=== PATIENT | male | born 1975 ===

== ENCOUNTER 2018-06-03 17:27 | Emergency (ER) | payer OTHER ==
--- OUTSIDE RECORDS SUMMARY | 2018-06-03 17:35 | XMS REPORT ---
:1975 External Reference #:[id number] Author Organization [facility] Address [address] [place] [address] Phone [phone] Care Team Providers Name Role Phone Morgan Swanson MD Care Team Information Cartoon Animator Unavailable Morgan Swanson MD Primary Care Physician Unavailable Payers Type Date Identification Numbers Payment Provider Subscriber Health Maintenance Policy Number: [id number] [place] [employer] Gisel Barbosa Organization (HMO) Group Number: [id number] [id number] PayID: [id number] [place] [address] Problems Description No Information Family History Date Family Member(s) Problem(s) Comments Father Hypertension Mother Kidney Stones First Son Crohn's Disease Second Son No Current Problems Grandfather due to () Hypertension : Grandfather due to SD () Grandfather due to () Alcoholism Paternal Grandmother due to SD () Maternal Grandfather due to Unknown () - in 90s Causes Maternal Grandmother due to Unknown () - in her Causes 90s Social History Type Date Description Comments Marital Status . Lives With Son Lives With Spouse Sleep Typically sleeps 8 hours a night Occupation biomedical sciences mostly research Work Status Full-Time Employment Cigarette Use Never Smoked Cigarettes ETOH Use Rare only a few times per year Recreational Drug Use Never Used Drugs Smoking Patient has never smoked Exercise Type/Frequency Exercises regularly walks regularly Currently Active Patient is currently sexually active STD's No STD History Dom Violence Screen screening has been done Allergies, Adverse Reactions, Alerts Date Description Reaction Status Severity Comments 05/29/2018 NKDA active Medications Medication Date Status Form Strength Qnty SIG Indications Ordering Provider Lisinopril Active Tablets 5mg 1 by Unknown 00 mouth every day Levothyroxine Active Tablets 50mcg 1 by Unknown Sodium 00 mouth every day Atorvastatin Active Tablets 40mg 1 by Unknown Calcium 00 mouth every day Vital Signs Date Vital Result Comment 05/29/2018 BP Systolic 102 mmHg BP Diastolic 70 mmHg Heart Rate 72 /min Body Temperature 98.1 F Respiratory Rate 16 /min Height 67 inches 5'7" Weight 163.00 lb BMI (Body Mass Index) 25.5 kg/m2 Results Description No Information Procedures Description No Information Plan of Care 05/29/2018 - Melissa Pham, NPI10 Essential (primary) hypertensionComments: Call or return to the office if:* you get more than one blood pressure reading above 160/100 (even if only one of the numbers is high)* you feel close to passing out or actually pass out* you have new or worsening swelling in the ankles, legs, hands, or face* you develop palpiatations or funny heartbeats I would make no medication changes at this time.E78.2 Mixed hyperlipidemiaComments :I would make no medication changes at this time.E03.9 Hypothyroidism, unspecifiedNew Labs:TSH ([facility])Comments:will recheck TSH vcpduG38.01 Impaired fasting glucoseNew Labs:Comp Metabolic-ALL Lab CompaniHemoglobin A1c ( a)Comments:Will suoigmjG67.61 Achilles tendinitis, right legComments:I recommend stretching exercises twice daily, naproxen as needed, and gel heel cups.If symptoms persist or worsen, please let me know and we can try physical therapy and a referral to a school librarian.M76.62 Achilles tendinitis, left legR53.83 Other flihhayZ73.8 Other vitamin B12 deficiency anemiasNew Labs: Vitamin B12 Ser Mass/VolComments:Will recheck today.Z23 Encounter for immunizationAllComments:As always, we strongly encourage a healthy diet and making physical activity a part of your every day life. If you have questions about how or where to start, please contact the office.
[2018-06-03 18:07] VITALS: BP 144/73
--- NOTE | 2018-06-03 18:36 | UC ---
Headache HPI - HPI Summary HPI Summary: just got his lab report back that had a blood glucose of 443. he has been c/o headache in the afternoons ---he experience polydipsia, and polyuria id not otherwise ill - History Of Current Complaint Chief Complaint: UCGeneralIllness Stated Complaint: HEADACHE Time Seen by Provider: 06/03/18 18:23 Hx Obtained From: Patient Onset/Duration: Sudden Onset Pain Intensity: 0 Timing: Intermittent, Lasting:, Hours Character: Typical Headache Location of Headache: Diffuse Aggravating Factor(s): Nothing Allevating Factor(s): Rest Associated Signs And Symptoms: Positive: Negative - Allergies/Home Medications Allergies/Adverse Reactions: Allergies Allergy/AdvReac Type Severity Reaction Status Date / Time No Known Allergies Allergy Verified 06/03/18 20:48 Home Medications: Home Medications Atorvastatin* [Lipitor*] 5 mg PO DAILY 06/03/18 [History Confirmed 06/03/18] Levothyroxine TAB* [Synthroid TAB*] 50 mcg PO DAILY 06/03/18 [History Confirmed 06/03/18] Lisinopril TAB* [Prinivil TAB*] 5 mg PO DAILY 06/03/18 [History Confirmed ] PMH/Surg Hx/FS Hx/Imm Hx Previously Healthy: No Endocrine History: Hypothyroidism, Dyslipidemia Cardiovascular History: Hypertension - Surgical History Surgical History: None - Family History Known Family History: Positive: None - Social History Occupation: Employed Full-time Lives: With Family Alcohol Use: None Substance Use Type: None Smoking Status (MU): Never Smoked Tobacco Review of Systems Constitutional: Negative Skin: Negative Eyes: Negative ENT: Negative Respiratory: Negative Cardiovascular: Negative Gastrointestinal: Negative Genitourinary: Frequency Motor: Negative Neurovascular: Negative Musculoskeletal: Negative Neurological: Headache Psychological: Negative Is Patient Immunocompromised?: No All Other Systems Reviewed And Are Negative: Yes Physical Exam Triage Information Reviewed: Yes Appearance: Well-Appearing, No Pain Distress, Well-Nourished Vital Signs: Initial Vital Signs Temp 98.2 F 06/03/18 18:01 Pulse 91 06/03/18 18:01 Resp 16 06/03/18 18:01 BP 144/73 06/03/18 18:01 Pulse Ox 100 06/03/18 18:01 Vital Signs Reviewed: Yes Eye Exam: Normal Eyes: Positive: Conjunctiva Clear ENT Exam: Normal ENT: Positive: Normal ENT inspection, Hearing grossly normal. Negative: Trismus , Muffled voice, Hoarse voice Dental Exam: Normal Neck exam: Normal Neck: Positive: Supple, Nontender Respiratory Exam: Normal Respiratory: Positive: Chest non-tender, No respiratory distress, No accessory muscle use Cardiovascular Exam: Normal Cardiovascular: Positive: RRR, Pulses Normal, Brisk Capillary Refill Musculoskeletal Exam: Normal Musculoskeletal: Positive: Strength Intact, ROM Intact, No Edema Neurological Exam: Normal Neurological: Positive: Alert, Muscle Tone Normal Psychological Exam: Normal Skin Exam: Normal Diagnostics - Laboratory Diagnostic Studies Completed/Ordered: FSBS x2 >444. ua +2 ketones, +3 glucose Headache Course/Dx - Course Course Of Treatment: patient will go to the emergency department at [facility] by private car for futher evaluation of hyponatremia (129 on patients lab portal, ) hyperglycemia and ketosis - Differential Dx/Diagnosis Provider Diagnoses: new onset hyperglycemia, ketosis, hyponatremia, headache Discharge - Sign-Out/Discharge Documenting (check all that apply): Patient Departure All imaging exams completed and their final reports reviewed: No Studies - Discharge Plan Condition: Fair Disposition: HOME-RECOMMEND TO ED Patient Education Materials: Hyponatremia (ED), Diabetic Hyperglycemia (ED) Referrals: No Primary Care Phys,NOPCP [Primary Care Provider] - Additional Instructions: We are discharging you from the urgent care to go to the emergency department for further evaluation and treatment of your elevated glucose - Billing Disposition and Condition Condition: FAIR Disposition: Home-Recommend to ED - Attestation Statements Provider Attestation: I was available for consult. This patient was seen by the JANET. The patient was not presented to, seen by, or examined by me. -Yamileth
== END 2018-06-03 19:40 | disposition home health service (06) ==
LOC: UCEAST 17:27
CPT/HCPCS: 81003; 99202; G0463